=== PATIENT | female | born 1955 | race Caucasian/White ===

== ENCOUNTER 2016-06-14 14:55 | Emergency (ER) | payer OTHER ==
[~2016-06-14] VITALS: Ht 157.5 cm; Wt 63.5 kg
[~2016-06-14 14:55] MED LIST: SIMV10TA6 PO
--- NOTE | 2016-06-14 15:10 | NUR ---
PT AMBULATORY TO ER BED 21. C/O GENERALIZED WEAKNESS, HEADACHE FOR 1 WEEK NOW. NO NEURO DEFICIT NOTED. DENIES CHEST PAIN. AWAITING MD FELIX.
--- NOTE | 2016-06-14 15:19 | NUR ---
VICTOR MANUEL FREITAS AT BEDSIDE FOR EVAL.
--- NOTE | 2016-06-14 15:46 | NUR ---
Patient discharged to home in stable condition. Written and verbal after care instructions given. Patient verbalizes understanding of instruction.
[2016-06-14 15:52] VITALS: BP 132/84
== END 2016-06-14 15:53 | disposition home or self-care (01) ==
LOC: ER 14:56
DX: R51 Headache (principal)
CPT/HCPCS: A4606; Z7610

== ENCOUNTER 2023-12-06 16:41 | Emergency (ER) | payer MEDICARE, OTHER ==
[~2023-12-06] VITALS: Ht 154.9 cm; Wt 58.1 kg
[~2023-12-06 16:41] MED LIST changes: -SIMV10TA6 PO; +SIMV10TA98 PO
[2023-12-06 17:21] LABS: BASOPHILS # (AUTO) 0.1 K/uL (0.0-0.2); BASOPHILS % (AUTO) 1.5 % (0.0-2.0); EOSINOPHILS # (AUTO) 0.1 K/uL (0.0-0.7); EOSINOPHILS % (AUTO) 1.7 % (0.0-6.0); HEMATOCRIT 39 % (33-45); HEMOGLOBIN 13.1 g/dL (11.5-14.8); LYMPHOCYTES # (AUTO) 2.1 K/uL (0.8-4.8); LYMPHOCYTES % (AUTO) 32.1 % (20.0-44.0); MEAN CORPUSCULAR HEMOGLOBIN 31 PG (26.0-33.0); MEAN CORPUSCULAR HGB CONC 33 g/dl (31.0-36.0); MEAN CORPUSCULAR VOLUME 93 fL (82-100); MONOCYTES # (AUTO) 0.4 K/uL (0.1-1.30); MONOCYTES % (AUTO) 6.8 % (2.0-12.0); NEUTROPHILS # (AUTO) 3.8 K/uL (1.8-8.9); NEUTROPHILS % (AUTO) 57.9 % (43.0-81.0); PLATELET COUNT (AUTO) 195 K/uL (150-450); RED BLOOD CELL COUNT(AUTO) 4.24 MIL/uL (4.0-5.2); RED CELL DISTRIBUTION WIDTH 13.7 % (11.5-15.0); WHITE BLOOD COUNT (AUTO) 6.6 K/uL (4.3-11.0)
[2023-12-06 17:29] LABS: CARBON DIOXIDE 27 mmol/L (21-32); CHLORIDE 106 mmol/L (98-107); CREATININE 0.8 mg/dL (0.6-1.3); GLUCOSE 112 mg/dL (74-106); POTASSIUM 3.6 mmol/L (3.5-5.1); SODIUM SERUM 140 mmol/L (136-145); UREA NITROGEN, BLOOD 18 mg/dL (7-18)
[2023-12-06 17:33] LABS: INR 0.96 (0.91-1.10); PROTHROMBIN TIME 9.9 SECS (9.2-11.1)
[2023-12-06 17:44] LABS: ALANINE AMINOTRANSFERASE 27 U/L (12-78); ALBUMIN 4.1 g/dL (3.4-5.0); ALKALINE PHOSPHATASE 39 U/L (46-116); ASPARTATE AMINOTRANSFERASE 14 U/L (15-37); BILIRUBIN,DIRECT 0.1 mg/dL (0.0-0.2); BILIRUBIN,TOTAL 0.5 mg/dL (0.2-1.0); NT-PRO BNP 131 pg/mL (0-125)
[2023-12-06] MEDS: MAG HYDROX/AL HYDROX/SIMETH 30 ML UDC PO ONE (18:30)
[2023-12-06] MEDS: PANTOPRAZOLE 40 MG VIAL IV ONE (18:30)
[2023-12-06] MEDS ORDERED: PANTOPRAZOLE 40 MG VIAL ONE (18:30)
[2023-12-06] MEDS ORDERED: MAG HYDROX/AL HYDROX/SIMETH 30 ML UDC ONE (18:30)
[2023-12-06 20:04] VITALS: BP 126/79; TEMP 98.4; O2SAT 99
== END 2023-12-06 20:05 | disposition home or self-care (01) ==
LOC: ER 16:58
DX: R07.89 Other chest pain (principal); R06.02 Shortness of breath; E78.00 Pure hypercholesterolemia, unspecified; Z79.899 Other long term (current) drug therapy; Z20.822 Contact with and (suspected) exposure to COVID-19
CPT/HCPCS: 99285; 96374; 71045; 87426; 93005; 85025; 80048; 80076; 36415; 84484 ×2; 85730; 83880; J7030; J2470

== ENCOUNTER 2024-08-31 16:36 | Emergency (ER) | payer MEDICARE, OTHER ==
[~2024-08-31] VITALS: Ht 157.5 cm; Wt 57.6 kg
[2024-08-31] MEDS ORDERED: LIDOCAINE 5% (PATCH) 1 EA PATCH TP ONE (17:06)
[2024-08-31] MEDS ORDERED: KETOROLAC TROMETHAMINE 15 MG/ML VIAL ONE (17:06)
[2024-08-31] MEDS: KETOROLAC TROMETHAMINE 15 MG/ML VIAL IM ONE (17:28)
[2024-08-31] MEDS: LIDOCAINE 5% (PATCH) 1 EA PATCH TP SCH (17:29)
[2024-08-31] MEDS ORDERED: TRAZ-182 PO (18:11)
[2024-08-31] MEDS ORDERED: LIDO30AD10 TP (18:11)
[2024-08-31 18:59] VITALS: BP 121/64; TEMP 97.6; O2SAT 98
== END 2024-08-31 18:40 | disposition home or self-care (01) ==
LOC: ER 16:36
DX: S20.212A Contusion of left front wall of thorax, initial encounter (principal); E78.00 Pure hypercholesterolemia, unspecified; Z79.899 Other long term (current) drug therapy; W23.0XXA Caught, crushed, jammed, or pinched between moving objects, initial encounter; Y93.89 Activity, other specified; Y92.89 Other specified places as the place of occurrence of the external cause; Y99.8 Other external cause status; Z60.2 Problems related to living alone
CPT/HCPCS: 99284; 71045; 96372; 93005; 73080; J1885

== ENCOUNTER 2024-11-04 09:31 | Emergency (ER) | payer MEDICARE, OTHER ==
[~2024-11-04] VITALS: Ht 160 cm; Wt 58.1 kg
[~2024-11-04 09:31] MED LIST changes: +LIDO30AD10 TP; +TRAZ-182 PO
[2024-11-04] MEDS ORDERED: KETOROLAC TROMETHAMINE 15 MG/ML VIAL ONE (10:20)
[2024-11-04] MEDS ORDERED: ONDANSETRON HCL/PF 4 MG/2 ML VIAL ONE (10:20)
[2024-11-04] MEDS: KETOROLAC TROMETHAMINE 15 MG/ML VIAL IV ONE (10:44)
[2024-11-04] MEDS: IV NS 0.9% 1,000 ML BAG IV ONE (10:44)
[2024-11-04] MEDS: ONDANSETRON HCL/PF 4 MG/2 ML VIAL IVP ONE (10:45)
[2024-11-04 10:46] LABS: PLATELET COUNT (AUTO) 158 K/uL (150-450); RED BLOOD CELL COUNT(AUTO) 4.43 MIL/uL (4.0-5.2); RED CELL DISTRIBUTION WIDTH 13.9 % (11.5-15.0); WHITE BLOOD COUNT (AUTO) 4.4 K/uL (4.3-11.0)
[2024-11-04 10:54] LABS: CALCIUM, SERUM 8.6 mg/dL (8.5-10.1); CREATININE 0.8 mg/dL (0.6-1.3); SODIUM SERUM 141.0 mmol/L (136-145); UREA NITROGEN, BLOOD 11.0 mg/dL (7-18)
[2024-11-04 11:00] LABS: APPEARANCE,URINE CLEAR (CLEAR); BLOOD, URINE 2+ Ery/uL (NEGATIVE); LEUKOCYTE ESTERASE ,URINE NEGATIVE (NEGATIVE); NITRITE, URINE NEGATIVE (NEGATIVE); UGLUCOSE NEGATIVE (NEGATIVE)
[2024-11-04 11:04] LABS: ADD URINE CULTURE NO
[2024-11-04] MEDS ORDERED: ONDA4TAB11 PO (12:41)
[2024-11-04] MEDS ORDERED: IBUP-1490 PO (12:41)
[2024-11-04] MEDS ORDERED: ACET-73 PO (12:41)
[2024-11-04] MEDS ORDERED: ALBU8.5H8 INH (12:53)
[2024-11-04 13:06] VITALS: BP 112/63; TEMP 99.4; O2SAT 96
== END 2024-11-04 13:07 | disposition home or self-care (01) ==
LOC: ER 09:37
DX: U07.1 COVID-19 (principal); R11.2 Nausea with vomiting, unspecified; E78.00 Pure hypercholesterolemia, unspecified; Z79.899 Other long term (current) drug therapy
CPT/HCPCS: 99284; 96374; 71045; 96361; 96375; 87426; 87804 ×2; 85025; 80048; 81001; 36415; J1885; J2405; J7030